=== PATIENT | male | born 1960 | race Caucasian/White ===

== ENCOUNTER 2020-07-25 23:12 | Emergency (ER) | payer BC ==
[~2020-07-25] VITALS: Ht 172.7 cm; Wt 87.1 kg
[2020-07-25] MEDS ORDERED: [UNRECOGNIZED DRUG - REMARK] (23:31)
[2020-07-25] MEDS ORDERED: ASPI81TA31 PO (23:31)
[2020-07-25] MEDS ORDERED: [UNRECOGNIZED DRUG - REMARK] (23:31)
[2020-07-25] MEDS ORDERED: ROSU20TA2 PO (23:31)
[2020-07-25] MEDS ORDERED: ESCI10TA PO (23:31)
[2020-07-25] MEDS ORDERED: TRAZ-182 PO (23:31)
[2020-07-25] MEDS ORDERED: [UNRECOGNIZED DRUG - REMARK] (23:31)
--- NOTE | 2020-07-25 23:40 | NUR ---
Dr. Khan at bedside for MSE.
[2020-07-25] MEDS ORDERED: IV NORMAL SALINE 1000 ML BAG IV ONE (23:45)
[2020-07-25] MEDS ORDERED: KETOROLAC TROMETHAMINE 15 MG INJ IVP ONE (23:45)
[2020-07-25] MEDS ORDERED: HYDROMORPHONE 1 MG/1 ML DISP.SYRIN IV ONE (23:45)
[2020-07-25] MEDS ORDERED: ONDANSETRON 4 MG/2 ML VIAL IV ONE (23:45)
[2020-07-25] MEDS ORDERED: KETOROLAC TROMETHAMINE 15 MG INJ ONE (23:54)
[2020-07-25] MEDS ORDERED: ONDANSETRON 4 MG/2 ML VIAL ONE (23:54)
[2020-07-25] MEDS ORDERED: HYDROMORPHONE 1 MG/1 ML DISP.SYRIN ONE (23:54)
--- NOTE | 2020-07-26 00:05 | NUR ---
Ultrasound at bedside.
[2020-07-26 00:14] LABS: BASOPHILS # (AUTO) 0.1 K/uL (0.0-8.0); BASOPHILS % (AUTO) 0.8 % (0.0-2.0); EOSINOPHILS # (AUTO) 0.4 K/uL (0.0-0.7); EOSINOPHILS % (AUTO) 5.3 % (0.0-7.0); HEMATOCRIT 41.4 % (36.7-47.1); HEMOGLOBIN 13.7 g/dL (12.5-16.3); LYMPHOCYTES % (AUTO) 26.7 % (20.5-51.5); MEAN CORPUSCULAR HEMOGLOBIN 29.8 uug (23.8-33.4); MEAN CORPUSCULAR HGB CONC 33 g/dL (32.5-36.3); MONOCYTES # (AUTO) 0.7 K/uL (2.0-10.0); MONOCYTES % (AUTO) 8.6 % (0.0-11.0); NEUTROPHILS # (AUTO) 4.5 K/uL (1.8-8.9); NEUTROPHILS % (AUTO) 58.6 % (38.5-71.5); PLATELET COUNT (AUTO) 166 K/uL (152-348); WHITE BLOOD COUNT (AUTO) 7.7 K/uL (3.6-10.2)
[2020-07-26 00:21] LABS: *BILIRUBIN,URIN NEGATIVE (NEGATIVE); *BLOOD, URINE 2+ (NEGATIVE); *CLARITY,URINE CLEAR (CLEAR); *COLOR,URINE YELLOW (YELLOW); *KETONES,URINE NEGATIVE (NEGATIVE); *UROBILINOGEN,URINE 0.2 E.U./dl (NORMAL); LEUKOCYTE ESTERASE ,URINE NEGATIVE (NEGATIVE); NITRITE, URINE NEGATIVE (NEGATIVE); PH,URINE 6.5 (5.0-8.0); UGLUCOSE 2+ (NEGATIVE)
[2020-07-26 00:21] LABS: CREATININE 1.4 mg/dL (0.6-1.3); POTASSIUM 3.7 mmol/L (3.5-5.1)
[2020-07-26 00:27] LABS: BILIRUBIN,DIRECT 0.2 mg/dL (0.0-0.2); BILIRUBIN,TOTAL 0.5 mg/dL (0.2-1.0); TOTAL PROTEIN, SERUM 7.5 g/dL (6.4-8.2)
[2020-07-26] MEDS ORDERED: TAMSULOSIN HCL 0.4 MG CAP.SR.24H PO ONE (01:15)
[2020-07-26] MEDS ORDERED: TAMSULOSIN HCL 0.4 MG CAP.SR.24H ONE (01:17)
--- NOTE | 2020-07-26 01:49 | NUR ---
Patient discharged to home in stable condition. Written and verbal after care instructions given. Patient verbalizes understanding of instructions. Stressed follow up or return to ER for worsening s/s. Patient ambulated out of ER with steady gait, no acute signs of distress, VSS, all belongings taken, IV site discontinued, provided copies of diagnostic and lab results.
[2020-07-26 01:50] VITALS: BP 155/80
[2020-07-26 02:23] LABS: BACTERIA,URINE NONE SEEN /HPF (NONE SEEN); RBC,URINE 20-50 /HPF (0-3); SQUAMOUS EPITHELIAL CELL,UR FEW /HPF (NONE SEEN)
[2020-07-26 02:24] LABS: MUCUS,URINE FEW /LPF (0-FEW)
== END 2020-07-26 01:51 | disposition home or self-care (01) ==
LOC: ER 23:12
DX: N20.0 Calculus of kidney (principal); R10.9 Unspecified abdominal pain; E78.5 Hyperlipidemia, unspecified; Z79.82 Long term (current) use of aspirin; Z79.899 Other long term (current) drug therapy; Z87.442 Personal history of urinary calculi; F32.9 Major depressive disorder, single episode, unspecified; F41.9 Anxiety disorder, unspecified
CPT/HCPCS: 36415; 76770; 80048; 80076; 81001; 83690; 85025; 96361; 96374; 96375; 99284; J1170; J1885; J2405; A4663; J7030

== ENCOUNTER 2020-08-09 22:15 | Emergency (ER) | payer BC ==
[~2020-08-09] VITALS: Ht 172.7 cm; Wt 86.2 kg
[~2020-08-09 22:15] MED LIST: ASPI81TA31 PO; ESCI10TA PO; ROSU20TA2 PO; TRAZ-182 PO; [UNRECOGNIZED DRUG - REMARK]; [UNRECOGNIZED DRUG - REMARK]; [UNRECOGNIZED DRUG - REMARK]
[2020-08-09] MEDS ORDERED: HYDR-3326 PO (22:21)
[2020-08-09] MEDS ORDERED: TAMS-3 PO (22:21)
--- NOTE | 2020-08-09 22:28 | NUR ---
at bedside for assessment
[2020-08-09] MEDS ORDERED: HYDROMORPHONE 1 MG/1 ML DISP.SYRIN IV ONE (22:30)
[2020-08-09] MEDS ORDERED: ONDANSETRON 4 MG/2 ML VIAL IV ONE (22:30)
[2020-08-09] MEDS ORDERED: IV NORMAL SALINE 1000 ML BAG IV ONE (22:30)
[2020-08-09] MEDS ORDERED: HYDROMORPHONE 1 MG/1 ML DISP.SYRIN ONE (22:39)
[2020-08-09] MEDS ORDERED: ONDANSETRON 4 MG/2 ML VIAL ONE (22:39)
[2020-08-09 22:55] LABS: BASOPHILS # (AUTO) 0.1 K/uL (0.0-8.0); BASOPHILS % (AUTO) 0.7 % (0.0-2.0); EOSINOPHILS # (AUTO) 0.2 K/uL (0.0-0.7); EOSINOPHILS % (AUTO) 2.3 % (0.0-7.0); HEMATOCRIT 37.1 % (36.7-47.1); HEMOGLOBIN 12.9 g/dL (12.5-16.3); LYMPHOCYTES # (AUTO) 0.9 K/uL (20.0-40.0); LYMPHOCYTES % (AUTO) 11.4 % (20.5-51.5); MEAN CORPUSCULAR HEMOGLOBIN 30.7 uug (23.8-33.4); MEAN CORPUSCULAR HGB CONC 35 g/dL (32.5-36.3); MEAN CORPUSCULAR VOLUME 88.5 fL (73.0-96.2); MONOCYTES # (AUTO) 0.7 K/uL (2.0-10.0); MONOCYTES % (AUTO) 9.7 % (0.0-11.0); NEUTROPHILS # (AUTO) 5.8 K/uL (1.8-8.9); NEUTROPHILS % (AUTO) 75.9 % (38.5-71.5); PLATELET COUNT (AUTO) 145 K/uL (152-348); WHITE BLOOD COUNT (AUTO) 7.7 K/uL (3.6-10.2)
[2020-08-09 23:06] LABS: CREATININE 1.9 mg/dL (0.6-1.3); POTASSIUM 3.9 mmol/L (3.5-5.1)
[2020-08-09 23:19] LABS: BILIRUBIN,DIRECT 0.2 mg/dL (0.0-0.2); BILIRUBIN,TOTAL 0.6 mg/dL (0.2-1.0); TOTAL PROTEIN, SERUM 6.8 g/dL (6.4-8.2)
[2020-08-10] MEDS ORDERED: HYDROMORPHONE 1 MG/1 ML DISP.SYRIN ONE (00:09)
[2020-08-10] MEDS ORDERED: KETOROLAC TROMETHAMINE 30 MG INJ ONE (00:09)
[2020-08-10] MEDS ORDERED: TAMSULOSIN HCL 0.4 MG CAP.SR.24H ONE (00:10)
--- NOTE | 2020-08-10 00:13 | NUR ---
urine collected and sent to lab at this time
[2020-08-10] MEDS ORDERED: HYDROMORPHONE 1 MG/1 ML DISP.SYRIN IV ONE (00:15)
[2020-08-10] MEDS ORDERED: TAMSULOSIN HCL 0.4 MG CAP.SR.24H PO ONE (00:15)
[2020-08-10] MEDS ORDERED: KETOROLAC TROMETHAMINE 30 MG INJ IVP ONE (00:15)
[2020-08-10 00:31] LABS: *BILIRUBIN,URIN NEGATIVE (NEGATIVE); *BLOOD, URINE NEGATIVE (NEGATIVE); *CLARITY,URINE CLEAR (CLEAR); *COLOR,URINE YELLOW (YELLOW); *KETONES,URINE NEGATIVE (NEGATIVE); *UROBILINOGEN,URINE 0.2 E.U./dl (NORMAL); LEUKOCYTE ESTERASE ,URINE NEGATIVE (NEGATIVE); NITRITE, URINE NEGATIVE (NEGATIVE); PH,URINE 6.5 (5.0-8.0); UGLUCOSE 1+ (NEGATIVE)
--- NOTE | 2020-08-10 00:50 | NUR ---
Patient discharged to home in stable condition. Able to ambulate with steady gait, son picked up patient, Rx given. All needs met. Written and verbal after care instructions given. Patient verbalizes understanding of instructions. Stressed follow up or return to ER for worsening s/s.
[2020-08-10 00:58] VITALS: BP 114/79
== END 2020-08-10 00:54 | disposition home or self-care (01) ==
LOC: ER 22:22
DX: N13.2 Hydronephrosis with renal and ureteral calculous obstruction (principal); E78.5 Hyperlipidemia, unspecified; R79.89 Other specified abnormal findings of blood chemistry; Z79.82 Long term (current) use of aspirin; Z79.899 Other long term (current) drug therapy; F32.9 Major depressive disorder, single episode, unspecified; F41.9 Anxiety disorder, unspecified
CPT/HCPCS: 36415; 76770; 80048; 80076; 81003; 83690; 85025; 96361; 96374; 96375; 96376; 99284; J1170 ×2; J1885; J2405; J7030

== ENCOUNTER 2020-09-12 20:39 | Emergency (ER) | payer BC ==
[~2020-09-12] VITALS: Ht 172.7 cm; Wt 86.2 kg
[~2020-09-12 20:39] MED LIST changes: +HYDR-3326 PO; +TAMS-3 PO
--- NOTE | 2020-09-12 21:00 | NUR ---
Dr. Lopez at bedside for MSE
[2020-09-12] MEDS ORDERED: KETOROLAC TROMETHAMINE 60 MG INJ IM ONE ×2 (21:15→21:21)
[2020-09-12] MEDS ORDERED: ONDANSETRON ODT 4 MG TAB.RAPDIS SL ONE (21:15)
[2020-09-12 21:16] LABS: *BILIRUBIN,URIN NEGATIVE (NEGATIVE); *BLOOD, URINE 2+ (NEGATIVE); *CLARITY,URINE CLEAR (CLEAR); *COLOR,URINE YELLOW (YELLOW); *KETONES,URINE NEGATIVE (NEGATIVE); *UROBILINOGEN,URINE 0.2 E.U./dl (NORMAL); LEUKOCYTE ESTERASE ,URINE NEGATIVE (NEGATIVE); NITRITE, URINE NEGATIVE (NEGATIVE); PH,URINE 5.5 (5.0-8.0); UGLUCOSE NEGATIVE (NEGATIVE)
[2020-09-12] MEDS ORDERED: ONDANSETRON ODT 4 MG TAB.RAPDIS ONE (21:21)
--- NOTE | 2020-09-12 21:45 | NUR ---
US at bedside
[2020-09-12 21:47] LABS: BASOPHILS # (AUTO) 0.1 K/uL (0.0-8.0); BASOPHILS % (AUTO) 0.8 % (0.0-2.0); EOSINOPHILS # (AUTO) 0.3 K/uL (0.0-0.7); EOSINOPHILS % (AUTO) 3.9 % (0.0-7.0); HEMATOCRIT 35.3 % (36.7-47.1); LYMPHOCYTES # (AUTO) 1.9 K/uL (20.0-40.0); LYMPHOCYTES % (AUTO) 27.1 % (20.5-51.5); MEAN CORPUSCULAR HEMOGLOBIN 30.1 uug (23.8-33.4); MEAN CORPUSCULAR HGB CONC 34 g/dL (32.5-36.3); MEAN CORPUSCULAR VOLUME 88.8 fL (73.0-96.2); MONOCYTES # (AUTO) 0.7 K/uL (2.0-10.0); MONOCYTES % (AUTO) 10.1 % (0.0-11.0); NEUTROPHILS % (AUTO) 58.1 % (38.5-71.5); PLATELET COUNT (AUTO) 160 K/uL (152-348); RED BLOOD CELL COUNT(AUTO) 3.97 MIL/uL (4.06-5.63); WHITE BLOOD COUNT (AUTO) 6.9 K/uL (3.6-10.2)
[2020-09-12 21:59] LABS: CREATININE 1.2 mg/dL (0.6-1.3); POTASSIUM 4.2 mmol/L (3.5-5.1)
[2020-09-12 22:08] LABS: BILIRUBIN,DIRECT 0.1 mg/dL (0.0-0.2); BILIRUBIN,TOTAL 0.5 mg/dL (0.2-1.0)
[2020-09-12 22:09] LABS: TOTAL PROTEIN, SERUM 6.7 g/dL (6.4-8.2)
[2020-09-12 22:30] LABS: BACTERIA,URINE NONE SEEN /HPF (NONE SEEN); SQUAMOUS EPITHELIAL CELL,UR FEW /HPF (NONE SEEN); WBC,URINE 0-3 /HPF (0-3)
--- NOTE | 2020-09-12 23:14 | NUR ---
Patient discharged to home in stable condition. Written and verbal after care instructions given. Patient verbalizes understanding of instructions. Stressed follow up or return to ER for worsening s/s. Patient ambulating with steady gait. NAD noted
[2020-09-12 23:17] VITALS: BP 139/72
== END 2020-09-12 23:14 | disposition home or self-care (01) ==
LOC: ER 20:39
DX: N13.2 Hydronephrosis with renal and ureteral calculous obstruction (principal); Z87.442 Personal history of urinary calculi; I25.10 Atherosclerotic heart disease of native coronary artery without angina pectoris; E11.9 Type 2 diabetes mellitus without complications; E78.5 Hyperlipidemia, unspecified; Z79.82 Long term (current) use of aspirin; Z79.84 Long term (current) use of oral hypoglycemic drugs; Z79.899 Other long term (current) drug therapy
CPT/HCPCS: 36415; 76770; 83690; 85025; A4663; J1885; Q0162

== ENCOUNTER 2022-09-16 02:25 | Emergency (ER) | payer BC ==
[~2022-09-16] VITALS: Ht 172.7 cm; Wt 80.7 kg
--- NOTE | 2022-09-16 02:57 | NUR ---
Patient ambulated to room #5, assisted into gown and placed on monitor and informed of plan of care. Bedside EKG in progress for MD review, #20g established in left ac, blood collected and sent to lab. No s/s of any distress noted at this time.
[2022-09-16 03:02] LABS: HEMATOCRIT 40.3 % (36.7-47.1); MEAN CORPUSCULAR HEMOGLOBIN 30.5 uug (23.8-33.4); MEAN CORPUSCULAR VOLUME 89.3 fL (73.0-96.2); PLATELET COUNT (AUTO) 199 K/uL (152-348)
--- NOTE | 2022-09-16 03:02 | NUR ---
at bedside for exam.
[2022-09-16 03:11] LABS: CARBON DIOXIDE 32 mmol/L (21-32); CHLORIDE 103 mmol/L (98-107); CREATININE 1.1 mg/dL (0.6-1.3); GLUCOSE 162 mg/dL (74-106); POTASSIUM 3.9 mmol/L (3.5-5.1); UREA NITROGEN, BLOOD 18 mg/dL (7-18)
[2022-09-16] MEDS ORDERED: ONDANSETRON 4 MG/2 ML VIAL IV ONE (03:15)
[2022-09-16] MEDS ORDERED: MORPHINE SULFATE 4 MG/1 ML DISP.SYRIN IV ONE (03:15)
[2022-09-16 03:24] LABS: ALANINE AMINOTRANSFERASE 35 U/L (16-63); ALKALINE PHOSPHATASE 80 U/L (50-136); ASPARTATE AMINOTRANSFERASE 15 U/L (15-37); BILIRUBIN,DIRECT 0.2 mg/dL (0.0-0.2); BILIRUBIN,TOTAL 0.6 mg/dL (0.2-1.0); TOTAL PROTEIN, SERUM 7.2 g/dL (6.4-8.2)
[2022-09-16] MEDS ORDERED: SWABABLE VALVE TRANSFER SET EA MC ONE (03:35)
[2022-09-16] MEDS ORDERED: IOHEXOL 350 100 ML INFUS..BTL ONE (03:36)
[2022-09-16] MEDS ORDERED: IV NORMAL SALINE 250 ML IV ONE (03:36)
[2022-09-16] MEDS ORDERED: ONDANSETRON 4 MG/2 ML VIAL ONE (03:39)
[2022-09-16] MEDS ORDERED: MORPHINE SULFATE 4 MG/1 ML DISP.SYRIN ONE (03:39)
--- NOTE | 2022-09-16 03:47 | NUR ---
Patient resting in bed, medicated as per order.
--- NOTE | 2022-09-16 05:09 | NUR ---
MD at bedside talking to patient, still awaiting some results.
--- NOTE | 2022-09-16 05:15 | NUR ---
Requested and given water at this time.
--- NOTE | 2022-09-16 06:39 | NUR ---
Patient continues to rest without c/o, remains with any s/s of distress.
--- NOTE | 2022-09-16 07:03 | NUR ---
Patient signed MD DELLA aware. HL removed remains stable.
[2022-09-16] MEDS ORDERED: ACET1TAB23 PO (07:14)
[2022-09-16 07:37] VITALS: BP 135/82
== END 2022-09-16 07:38 | disposition left against medical advice (07) ==
LOC: ER 02:28
DX: R10.9 Unspecified abdominal pain (principal); R07.9 Chest pain, unspecified; E78.5 Hyperlipidemia, unspecified; E11.9 Type 2 diabetes mellitus without complications; I25.10 Atherosclerotic heart disease of native coronary artery without angina pectoris; Z53.29 Procedure and treatment not carried out because of patient's decision for other reasons; Z79.899 Other long term (current) drug therapy; Z79.82 Long term (current) use of aspirin; Z79.84 Long term (current) use of oral hypoglycemic drugs
CPT/HCPCS: 99285; 71275; 96374; 96375; 80076; 80048; 83880; 85025; 84484 ×2; 36415; 93005; 74177; J2405; Q9967; J2270; A4663